=== PATIENT | male | born 1945 | race Caucasian/White ===

== ENCOUNTER 2019-12-13 14:46 | Outpatient (CLI) | payer OTHER, SELFPAY ==
--- NOTE | ~2019-12-13 | CT_ITS ---
EXAMINATION: CT abdomen pelvis w con DATE: 12/13/2019 15:49 INDICATION: Abdomen pain. Fibrosis. TECHNIQUE: Computed tomography (CT) of the abdomen and pelvis was performed with 100 cc Omnipaque 350 intravenous contrast. The dose-length product was 1091.90 mGy-cm. Automated exposure control and ite rative reconstruction technique were employed. Automated exposure control and iterative reconstructio n technique were employed. COMPARISON: CT dated 01/18/2018 FINDINGS: Lung bases are unremarkable. No significant pleural or pericardial effusion. Heart size is normal. There is atherosclerosis of the aorta. Gallbladder is present. There are bilateral renal cyst s. Stable soft tissue surrounding the SMA within the mesentery and retroperitoneum. There is atherosc lerosis of the aorta without evidence for aneurysm. The liver, spleen, pancreas, adrenal glands are unremarkable. There are bilateral renal cysts. Enlarg ed prostate gland. No free air or free fluid. No acute osseous abnormality. There is moderate lumbar spondylosis. IMPRESSION: 1. Stable soft tissue in the mesentery and retroperitoneum, consistent with retroperitoneal fibrosis. No acute abnormalities. Reviewed, dictated and finalized at location A. IMPRESSION: 1. Stable soft tissue in the mesentery and retroperitoneum, consistent with ret roperitoneal fibrosis. No acute abnormalities.
[2019-12-13 15:41] LABS: Estimated Glomerular Filt Rate > 60
== END 2019-12-13 14:47 | disposition home or self-care (01) ==
PROVIDERS: PCP Family Medicine Adolescent Medicine; Visit Provider Family Medicine Adolescent Medicine
DX: R10.84 Generalized abdominal pain (principal)
CPT/HCPCS: 36415; 74177; Q9967

== ENCOUNTER 2024-01-31 08:28 | Inpatient (IN) | payer OTHER, SELFPAY ==
[2024-01-31] VITALS (20 sets, daily range): BP systolic 93–167; BP diastolic 53–88; PULSE 104–133; RESP 12–26; TEMP 37.8–39.2; O2SAT 78–100; BMI 29.6
--- NOTE | ~2024-01-31 | MR_ITS ---
MRI of the brain Clinical History: Unresponsiveness, ataxia Technique: Axial and sagittal T1-weighted images were acquired. These were followed by axial T2-weigh jameson, diffusion weighted, gradient, and FLAIR images. Findings: Probable tiny focus of acute restricted diffusion in the right cerebellum, compatible with tiny acute infarct. There is minimal chronic microvascular ischemic change in the periventricular whi te matter bilaterally. No intracranial hemorrhage or mass lesion seen. Ventricles and subarachnoid spaces are dilated. Orbits are unremarkable. Paranasal sinuses and mastoi ds are clear. Major intracranial flow voids are intact. Sagittal midline structures are intact. IMPRESSION: Tiny acute right cerebellar infarct. Minimal chronic white matter changes and mild generalized atrophy. Reviewed, dictated and finalized at location .
--- NOTE | ~2024-01-31 | CT_ITS ---
EXAMINATION: CT chest abdomen pelvis w con DATE: 01/31/2024 10:08 INDICATION: Septic with altered mental status TECHNIQUE: Computed tomography (CT) of the chest, abdomen, and pelvis was performed with 100 mL Omnip aque-350 intravenous contrast. Automated exposure control and iterative reconstruction technique were employed. The dose-length product was 1502.99 mGy-cm. COMPARISON: None FINDINGS: CHEST CT: Mild potentially moderate emphysema the lungs with assessment somewhat limited by respiratory motion. No pneumonia, pulmonary edema or pleural effusion. Heart size is normal. Atherosclerotic coronary ar amy calcification is. No pericardial effusion. Thoracic aorta is normal in caliber with no dissectio n. No pathologically enlarged thoracic lymphadenopathy. Moderate thoracic spondylosis. ABDOMEN/PELVIS CT: Liver, gallbladder, spleen and bilateral adrenal glands are normal. There is mild to moderate fatty a trophy of the pancreas. There are bilateral renal cysts the largest a 4.9 cm parapelvic cyst at the l eft renal hilum and a 3.7 cm exophytic cyst at the lower pole the right kidney. There are a few scatt ered colonic diverticula without adjacent inflammatory stranding to suggest diverticulitis. Small bow el and appendix are normal. Bladder is normal. Prostatomegaly measuring 4.9 x 3.6 cm. Bilateral small fat-containing inguinal hernias. No free intraperitoneal gas or fluid. No pathologically enlarged ab dominal or pelvic lymphadenopathy. There is calcified atherosclerosis of the aorta and many of the ot her arteries. Likely moderate 50-70% stenosis at the origin of the superior mesenteric artery. 2 cm c ystic lesion at the left hemiscrotum, likely epididymal cyst. Fusiform 6.6 x 3.4 x 2.3 cm intramuscul ar lipoma along the proximal left rectus femoris muscle. Mild S-shaped scoliosis of the lumbar and wi th lower thoracic spine with moderate to severe spondylosis. Small lucent hemangioma at L2. IMPRESSION: 1. No acute cardiopulmonary disease or acute intra-abdominal/pelvic process. 2. Prostatomegaly and 2 cm likely epididymal cyst at the left hemiscrotum. 3. 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 Reviewed, dictated and finalized at location A. IMPRESSION: 1. No acute cardiopulmonary disease or acute intra-abdominal/pelvic process. 2. Prostatomegaly and 2 cm likely epididymal cyst at the left hemiscrotum. 3. Extensive atherosclerosis including coronary artery disease and a moderate s tenosis at the origin of the superior mesenteric artery.
--- NOTE | ~2024-01-31 | CT_ITS ---
Non-contrast Head CT History: Altered mental status Technique: Axial non-contrast imaging of the brain was performed. Dose reduction technique was used on this scan by utilizing automated exposure control and iterative reconstruction technique. The dose -length product (DLP) was 1362.00 mGy-cm. Findings: There is no evidence of acute intracranial hemorrhage, mass lesion, or acute infarct. Poss ible small chronic subdural hygromas versus atrophic change. Brain parenchyma otherwise appears lennox l. The ventricles and subarachnoid spaces are normal in size. The calvarium appears normal. The vi sualized paranasal sinuses and mastoid air cells are clear. Impression: No acute abnormality. Small chronic subdural hygromas versus frontal atrophy. Reviewed, dictated and finalized at location . Impression: No acute abnormality. Small chronic subdural hygromas versus frontal atrophy.
--- NOTE | ~2024-01-31 | XR_ITS ---
EXAMINATION: XR lumbar puncture diagnostic DATE: 01/31/2024 15:00 INDICATION: Fevers and encephalopathy TECHNIQUE: The procedure including the risks and benefits was discussed with the patient's , Jil Bull. Risks discussed included spinal headache, cerebrospinal fluid leak, bleeding, and infection . The patient's understood the risks and agreed to proceed. A timeout was performed to verify the patient's name, date of , and procedure to be performed. The skin overlying the L4-L5 leve l was prepped and draped in usual sterile fashion. Subcutaneous 1% lidocaine was used for local anes thesia. A 22 gauge spinal needle was advanced under fluoroscopic guidance. The needle was removed an d the entry site was cleaned and dressed. There were no immediate complications. A single fluoroscop ic image and one crosstable lateral radiograph of the lumbar spine were obtained. The amount of fluor oscopy time used during this procedure was 0.3 minutes. Total DAP was 6.499 Gycm^2 The patient was t aken to return to the floor in the company of his nurse. FINDINGS: Real-time fluoroscopy demonstrates the needle at the L4-L5 level. Opening pressure was 11 c m water. (Normal range is variably defined as 6-20 cm water and up to 25 cm water in obese patients. Pressure >25 cm water is one of the modified Dandy criteria for idiopathic intracranial hypertension) . 13 mL of clear, colorless fluid was collected in 4 tubes. IMPRESSION: 1. Successful fluoro-guided lumbar puncture with normal opening pressure of 11 cm water. Reviewed, dictated and finalized at location A.
--- NOTE | ~2024-01-31 | XR_ITS ---
XR chest 1V portable DATE: 02/04/2024 08:53 INDICATION: Shortness of breath TECHNIQUE: 02/04/2024 portable AP chest at 0851 hours COMPARISON: 01/31/2024 CT chest abdomen pelvis 01/31/2024 2 view chest FINDINGS: Mild infiltrate or atelectasis of the right midlung. The lungs otherwise appear clear. No pleural effusion or pulmonary vascular congestion or pneumothorax. Heart size appears normal. Ther e is aortic unfolding. Degenerative spurring of the thoracic spine. IMPRESSION: Mild infiltrate or atelectasis, right midlung Reviewed, dictated and finalized at location A.
--- NOTE | ~2024-01-31 | XR_ITS ---
EXAMINATION: XR chest 2V 01/31/2024 09:18 INDICATION: Dizziness. Altered mental status. PROCEDURE: 2 view chest COMPARISON: No prior studies for comparison. FINDINGS: The lungs are clear. The cardiomediastinal silhouette is within normal limits. There are no pleural effusions. There is no pneumothorax suspected. Moderate thoracic spondylosis. IMPRESSION: 1: NO ACUTE CARDIOPULMONARY DISEASE. Reviewed, dictated and finalized at location B.
--- NOTE | 2024-01-31 08:34 | ECG_ITS ---
Test Date: 2024-01-31 08:36:30 Measurements Intervals [place] Rate: 113 P: 42 PA: 202 QRS: -27 QRSD: 92 T: 64 QT: 327 QTc: 449 Interpretive Statements SINUS TACHYCARDIA DELAYED PRECORDIAL R/S TRANSITION BASELINE ARTIFACT- I, II, III, AVR, AVL, AVF, V1-V6 ABNORMAL ECG No previous ECG available for comparison Electronically Signed On 01-31-2024 17:19:41 CDT by Bala Almendarez D.O.
[2024-01-31 09:19] LABS: Basophils Absolute Auto 0.1 K/mm3 (0.0-0.1); Basophils Percent Auto 0.6 % (0.2-1.2); Eosinophils Absolute Auto 0.1 K/mm3 (0-0.3); Eosinophils Percent Auto 1.1 % (0-4.4); Hematocrit 47.5 % (42.0-52.0); Hemoglobin 16.1 g/dL (14.0-18.0); Immature Granulocyte Absolute 0.05 K/mm3 (0.00-0.031); Immature Granulocyte Percent A 0.5 % (0-0.5); Lymphocytes Absolute Auto 1.34 K/mm3 (0.9-3.2); Lymphocytes Percent Auto 12.5 % (18.3-44.2); Mean Corpuscular HGB Conc 33.9 g/dl (32-36); Mean Corpuscular Hemoglobin 29.5 pg (26-34); Mean Corpuscular Volume 87.2 fl (80-100); Mean Platelet Volume 10.1 fl (7.4-10.4); Monocytes Absolute Auto 0.5 K/mm3 (0.1-0.6); Monocytes Percent Auto 5.1 % (2.6-8.5); Neutrophils Absolute Auto 8.6 K/mm3 (1.3-6.7); Neutrophils Percent Auto 80.2 % (45.5-73.1); Platelet Count Result 208 k/mm3 (150-375); Red Blood Count 5.45 M/mm3 (4.6-6.20); Red Cell Distribution Width 13.4 % (11.5-14.5); White Blood Count 10.7 K/mm3 (4.5-10.0)
[2024-01-31 09:21] LABS: Appearance Urine Clear (Clear); Bilirubin Urine Negative (Negative); Blood Urine Negative (Negative); Color Urine Yellow (Yellow); Glucose Urine UA Negative (Negative); Ketones Urine Negative (Negative); Leukocyte Esterase Ur Negative LEU/UL (Negative); Nitrate Urine Negative (Negative); Protein Urine Negative (Negative); Specific Grav Ur 1.016 (1.001-1.035)
[2024-01-31 09:27] LABS: Lactic Acid Reflex 3.7 mmol/L (0.7-2.0)
[2024-01-31 09:29] LABS: Alanine Aminotransferase 18 U/L (6-50); Alkaline Phosphatase 53 U/L (38-126); Anion Gap 14 mmol/L (4-12); Aspartate Amino Transferase 33 U/L (17-59); Bilirubin,Total 0.6 mg/dL (0.2-1.3); Blood Urea Nitrogen 14 mg/dL (9-20); Calcium 9.8 mg/dL (8.4-10.2); Carbon Dioxide 25 mmol/L (22-30); Chloride 98 mmol/L (98-107); Estimated CRCL calculation 70 ml/min; Estimated Glomerular Filt Rate > 60; Glucose 121 mg/dL (65-110); Potassium 4.1 mmol/L (3.4-5.0); Sodium 137 mmol/L (137-145)
[2024-01-31 09:32] LABS: Add Urine Microscopic? NO
[2024-01-31 09:54] LABS: Influenza A QL RT-PCR Negative (Negative); Influenza B QL RT-PCR Negative (Negative); RSV RNA, RT-PCR Negative (Negative); SARS-CoV-2 RNA PCR Negative (Negative)
[2024-01-31] MEDS: SODIUM CHLORIDE 0.9% IV 3,000 ML 999 ML IV CONT (11:19)
[2024-01-31] MEDS: PIPERACILLN/TAZ 3.375GM/NS50ML 3.375 GM/50 ML BAG IVPB (11:19)
--- NOTE | 2024-01-31 11:20 | ED.GENADULT ---
HPI - General Adult General Chief complaint: Dizziness Stated complaint: SOB Time Seen by Provider: 01/31/24 09:22 History of Present Illness HPI narrative: Patient is confused. The history and complaints he provides are non-sensical and inconsistent. It is impossible to get a history from him. History obtained from who is at bedside. This is a 78-year-old male presenting ED for altered mental status. Patient was asymptomatic yesterday. Today he woke up and had nausea vomiting, diarrhea, headache, and body aches. Related Data Home Medications Medication Instructions Recorded Confirmed aspirin 81 mg tablet,delayed 81 mg PO DAILY 08/25/21 04/18/23 release cetirizine 10 mg tablet 10 mg PO DAILY PRN 08/25/21 04/18/23 glucosamine HCl 1,500 mg tablet 1,500 mg PO BID 08/25/21 04/18/23 lycopene 10 mg capsule 10 mg PO DAILY 08/25/21 04/18/23 lysine 500 mg tablet 500 mg PO DAILY 08/25/21 04/18/23 omega 6-wjo-qba-fish oil 1,000 mg 1 cap PO BID 08/25/21 04/18/23 (120 mg-180 mg) capsule (Fish Oil) psyllium husk (aspartame) 3.4 PO 08/25/21 04/18/23 gram/5.8 gram oral powder (Metamucil [facility] Fiber) calcium carbonate (Antacid 200 mg PO BID PRN 03/16/22 04/18/23 (calcium carbonate)) coenzyme Q10 75 mg capsule (Ultra 75 mg PO DAILY 03/16/22 04/18/23 CoQ10) simethicone 125 mg capsule (Gas 125 mg PO BID PRN 03/16/22 04/18/23 Relief (simethicone)) vit B-rljeulon-xsk palmetto 160 1 cap PO BID 03/16/22 04/18/23 mg-[place] africanum 12.5 mg capsule (Urinozinc Prostate Classic) Allergies Allergy/AdvReac Type Severity Reaction Status Date / Time hydrocodone AdvReac Mild Drowsiness Verified 04/18/23 15:16 atorvastatin AdvReac Unknown unknown Verified 04/18/23 15:16 ezetimibe AdvReac Unknown UNknown Verified 04/18/23 15:16 lisinopril AdvReac Unknown UNknown Verified 04/18/23 15:16 rosuvastatin AdvReac Unknown UNknown Verified 04/18/23 15:16 tamsulosin AdvReac Unknown Unknown Verified 04/18/23 15:16 duloxetine AdvReac Intermediate Nausea Uncoded 04/18/23 15:16 [facility] Surgical History Surgical History History of colonoscopy 12/31 Benign polyp Repeat 01/05 Family History Family History Father Arthritis Social History Social History (Updated 04/18/23 @ 15:03 by Fiona Berry) Smoking packs per day: 2 Smoking cigarettes per day: 40.0 Years smoked: 40 Smoking pack-years: 80.00 Smoking status: Former smoker Tobacco type: cigarettes Second hand tobacco smoke exposure: No Smoking end date: 07/17/12 Alcohol intake: never Substance use: never Substance use type: does not use Lack of Transportation: YES Lack of Food: Never True Current Housing: I Have Housing Concerned About Future Housing: No Difficulty Paying Gas/Electric Bills: No Difficulty Paying for Meds: No Currently Unemployed: No Education: High School Diploma/GED Difficulty w/ Childcare or Family Care: No Living arrangements: with family Occupation/Education: retired Gender identity (if verbalized by the patient): Male Sexual Orientation (if Verbalized by the Patient): Straight or Heterosexual Spiritual care concerns: No Agree to blood products: Yes Exam Narrative: APPEARANCE: Patient is confused. Agitated. Head: atraumatic. EYES: EOMI, NOSE: Atraumatic NECK: Trachea midline, no neck stiffness RESPIRATORY: No increased rate of breathing clear to auscultation CARDIOVASCULAR: RRR, no peripheral edema ABDOMINAL: Non-distended soft nontender Genital exam: Penis and testicles are unremarkable. No cellulitis or crepitus. MUSCULOSKELETAl: No obvious deformities NEURO: Alert. Moving 4/4 extremities SKIN:: Warm, diaphoretic PSYCHIATRIC: Normal affect Course Vital Signs Vital signs: Vital Signs Temperature 101 F H 01/31/24 08:54 Pulse Rate 122 H 01/31/24 0
[2024-01-31] MEDS: VANCOMYCIN 1,250 MG/NS 250 ML 1,250 MG/250 ML BAG 166.67 MG IVPB (11:26)
[2024-01-31] MEDS: ACETAMINOPHEN 650 MG SUPPOSITORY RECTAL ×2 (12:00→15:39)
[2024-01-31 12:16] LABS: Reflex Lactic Acid Yes or No Add Lactic
[2024-01-31 12:28] LABS: INR 0.9; Prothrombin Time 12.8 Seconds (11.1-14.7)
[2024-01-31] MEDS: LORazepam INJ (*CRX) 2 MG/ML VIAL 1 MG IV PUSH (12:53)
[2024-01-31] MEDS: VANCOMYCIN 1,000 MG/NS 250 ML 1,000 MG/250 ML BAG 250 MG IVPB (13:04)
[2024-01-31 15:05] LABS: Glucose CSF 56 mg/dL (40-70); Total Protein CSF 113 mg/dL (12-60)
[2024-01-31 15:45] LABS: Lactic Acid 2.6 mmol/L (0.7-2.0)
[2024-01-31 16:03] LABS: Appearance CSF Clear (Clear); CSF source CSF; Color CSF Colorless (Colorless)
[2024-01-31 16:04] LABS: Lymphocytes CSF 30 % (40-80); Monocytes CSF 60 % (15-45); Neutrophils CSF 9 % (0-6); Nucleated Cell CSF 7 /uL (0-5); Red Blood Cell CSF 6 (0-2)
[2024-01-31 16:05] LABS: Macrophages CSF 1
[2024-01-31] MEDS: HYDROmorphone HCL INJ (*CRX) 1 MG/ML SYR 0.5 MG IV PUSH (16:16)
[2024-01-31 16:24] LABS: Thyroid Stimulating Hormone Reflex 0.352 uIU/mL (0.465-4.68)
[2024-01-31 17:27] LABS: Free T4 Free Thyroxine Reflex 0.87 ng/dL (0.78-2.19)
[2024-01-31] MEDS: dexAMETHasone SOD PHOS INJ 10 MG/ML 1 ML VIAL 13.5 MG IV PUSH ×2 (17:29→23:25)
[2024-01-31] MEDS: cefTRIAXone 2 GM/NS 100 ML 2 GM/100 ML BAG IVPB (17:30)
[2024-01-31] MEDS: AMPICILLIN 2 GM/NS 100 ML 2 GM/100 ML BAG IVPB ×2 (17:37→23:26)
[2024-01-31] MEDS: DEXTROSE 5% IVPB (17:59)
[2024-01-31] MEDS: ACYCLOVIR SODIUM IVPB (17:59)
[2024-01-31] MEDS: WATER IVPB (17:59)
[2024-01-31 19:15] LABS: Strep Group A RT-PCR NOT DETECTED (Negative)
[2024-01-31] MEDS: LACTATED RINGERS 1,000 ML 75 ML IV CONT (20:10)
--- NOTE | 2024-01-31 21:11 | PC.NURSE ---
Patient being verbally and physically aggressive at this time upon arrival to the ICU. Naomy STRICKLAND notified and to see the patient.
--- NOTE | 2024-01-31 21:46 | ADMGEN ---
2100 This patient, Thor Bull, was admitted to Intensive Care Unit-4. Patient/family oriented to hospital policies and general routines including ID bracelet, bed and alarms, visiting hours, pain management, procedures, bathroom and other care routines, personal items, smoking policy, room service/diet, and visiting hours. Information on how to activate the Rapid Response Team has been discussed. Patient/Family are encouraged to report perceived risks to care and to ask questions if they do not understand what they are told or what they should do.
--- NOTE | 2024-01-31 22:49 | PM.IMHP ---
H&P: HPI History of Present Illness Date/Time: 01/31/24 18:45 Chief Complaint: Altered mental status. Narrative: This is a 78-year-old male with hypertension, hyperlipidemia, chronic back pain, benign prostatic hyperplasia, and anxiety who presented to the emergency department via EMS from home for evaluation of altered mental status. The patient is confused and answers questions nonsensically and thus all of the following is obtained via a review of his EMR as well as information provided by his . He was in his usual state of health yesterday. When he awoke this morning he was confused and complained of headache, body aches, nausea, vomiting, diarrhea, and chills. At the time my evaluation he is only able to tell me that ?everything hurts. ? He has not had sick contacts or recent travel. He has not had any falls. No known exposure to mosquitos or ticks. In the ED: Temperature was 101.3? F on arrival. He has been tachycardic in the 120s.? Blood pressures have been stable. Labs were significant for WBC count of 10.7 and a lactic acid of 3.7. He tested negative for influenza, RSV, and COVID. Urinalysis was unremarkable. Brain CT showed no acute abnormality and a small chronic subdural hygroma versus frontal atrophy. Chest x-ray showed no acute cardiopulmonary disease. CT of the chest, abdomen, and pelvis showed no acute cardiopulmonary disease or acute intra-abdominal or pelvic process, prostatomegaly and 2 cm likely epididymal cyst, and extensive atherosclerosis. He was started on IV fluids and broad-spectrum antibiotics in the ED pending lumbar puncture and he is being admitted in this setting for close monitoring. Review of Systems Review of Systems: Unable to obtain accurately given clinical condition. [facility] Past Medical History Medical History (Updated 01/31/24 @ 22:57 by Naomy Waite PA-C) Aortic atherosclerosis CT 12/03 Benign prostatic hyperplasia Chronic back pain Depression Essential (primary) hypertension Gastro-esophageal reflux disease without esophagitis Generalized anxiety disorder Hyperlipidemia Menieres disease Surgical History Surgical History History of colonoscopy 12/31 Benign polyp Repeat 01/05 Family History Family History Father Arthritis Social History Social History (Updated 01/31/24 @ 22:54 by Naomy Waite PA-C) Social History: Surrogate medical decision maker: Renee Bull, spouse. Code status: Full code. Smoking packs per day: 2 Smoking cigarettes per day: 40.0 Years smoked: 40 Smoking pack-years: 80.00 Smoking status: Former smoker Tobacco type: cigarettes Second hand tobacco smoke exposure: No Smoking end date: 07/17/12 Alcohol intake: never Substance use: never Substance use type: does not use Lack of Transportation: YES Lack of Food: Never True Current Housing: I Have Housing Concerned About Future Housing: No Difficulty Paying Gas/Electric Bills: No Difficulty Paying for Meds: No Currently Unemployed: No Education: High School Diploma/GED Difficulty w/ Childcare or Family Care: No Living arrangements: with family Occupation/Education: retired Spiritual care concerns: No Agree to blood products: Yes Meds Home Medications and Allergies Home Medications Medication Instructions Recorded Confirmed Type aspirin 81 mg tablet,delayed 81 mg PO DAILY 08/25/21 04/18/23 History release cetirizine 10 mg tablet 10 mg PO DAILY PRN 08/25/21 04/18/23 History glucosamine HCl 1,500 mg tablet 1,500 mg PO BID 08/25/21 04/18/23 History lycopene 10 mg capsule 10 mg PO DAILY 08/25/21 04/18/23 History lysine 500 mg tablet 500 mg PO DAILY 08/25/21 04/18/23 History omega 2-fhz-kvj-fish oil 1,000 mg 1 cap PO BID 08/25/21 04/18/23 History (120 mg-180 mg) capsule (Fish Oil) psyllium husk (aspartame) 3.4 PO
[2024-02-01] VITALS (15 sets, daily range): BP systolic 102–129; BP diastolic 52–81; PULSE 89–120; RESP 15–26; TEMP 36.3–37.6; O2SAT 90–100
[2024-02-01] MEDS: WATER IVPB ×3 (02:33→18:16)
[2024-02-01] MEDS: AMPICILLIN 2 GM/NS 100 ML 2 GM/100 ML BAG IVPB ×6 (02:33→22:10)
[2024-02-01] MEDS: DEXTROSE 5% IVPB ×3 (02:33→18:16)
[2024-02-01] MEDS: ACYCLOVIR SODIUM IVPB ×3 (02:33→18:16)
[2024-02-01 04:00] LABS: Basophils Percent Auto 0.1 % (0.2-1.2); Hematocrit 41.6 % (42.0-52.0); Hemoglobin 14.1 g/dL (14.0-18.0); Immature Granulocyte Absolute 0.06 K/mm3 (0.00-0.031); Immature Granulocyte Percent A 0.4 % (0-0.5); Lymphocytes Absolute Auto 0.89 K/mm3 (0.9-3.2); Lymphocytes Percent Auto 6.4 % (18.3-44.2); Mean Corpuscular HGB Conc 33.9 g/dl (32-36); Mean Corpuscular Hemoglobin 29.5 pg (26-34); Mean Platelet Volume 9.9 fl (7.4-10.4); Monocytes Absolute Auto 0.2 K/mm3 (0.1-0.6); Monocytes Percent Auto 1.1 % (2.6-8.5); Neutrophils Absolute Auto 12.9 K/mm3 (1.3-6.7); Platelet Count Result 192 k/mm3 (150-375); Red Blood Count 4.78 M/mm3 (4.6-6.20); Red Cell Distribution Width 13.5 % (11.5-14.5)
[2024-02-01 04:09] LABS: Ammonia < 9 umol/L (9-30)
[2024-02-01 04:10] LABS: Lactic Acid Reflex 2.5 mmol/L (0.7-2.0)
[2024-02-01 04:12] LABS: Alanine Aminotransferase 17 U/L (6-50); Albumin Level 3.8 g/dL (3.5-5.1); Alkaline Phosphatase 36 U/L (38-126); Anion Gap 11 mmol/L (4-12); Aspartate Amino Transferase 82 U/L (17-59); Bilirubin,Total 0.6 mg/dL (0.2-1.3); Blood Urea Nitrogen 11 mg/dL (9-20); CRP 1.2 mg/dL (<1.0); Calcium 8.6 mg/dL (8.4-10.2); Carbon Dioxide 22 mmol/L (22-30); Chloride 103 mmol/L (98-107); Estimated CRCL calculation 76 ml/min; Estimated Glomerular Filt Rate > 60; Glucose 193 mg/dL (65-110); Magnesium 1.8 mg/dL (1.6-2.3); Phosphorus 2.2 mg/dL (2.5-4.5); Potassium 3.8 mmol/L (3.4-5.0); Sodium 136 mmol/L (137-145)
[2024-02-01] MEDS: SODIUM CHLOR 3% 15 ML NEB (RESPIRATORY THERAPY) 6 ML INHALATION (05:38)
[2024-02-01] MEDS: dexAMETHasone SOD PHOS INJ 10 MG/ML 1 ML VIAL 13.5 MG IV PUSH ×3 (05:55→17:37)
[2024-02-01] MEDS: VANCOMYCIN 1,500 MG/NS 500 ML 1,500 MG/500 ML BAG 250 MG IVPB (06:01)
[2024-02-01] MEDS: cefTRIAXone 2 GM/NS 100 ML 2 GM/100 ML BAG IVPB ×2 (06:01→17:39)
--- NOTE | 2024-02-01 06:34 | PC.NURSE ---
0630: Update given to .
[2024-02-01 06:58] LABS: Reflex Lactic Acid Yes or No Add Lactic
[2024-02-01 07:23] LABS: MRSA (PCR) NOT DETECTED (NOT DETECTE)
[2024-02-01 07:40] LABS: Lactic Acid 2.7 mmol/L (0.7-2.0)
[2024-02-01 07:41] LABS: Prothrombin Time 14.1 Seconds (11.1-14.7)
[2024-02-01 07:42] LABS: Partial Thromboplastin Time 26.4 Seconds (22.3-36.8)
[2024-02-01] MEDS: POTASSIUM/PHOSPHORUS/SODIUM 1.5 GM PACKET 1 PACKET PO (08:23)
--- NOTE | 2024-02-01 09:03 | WPDCNINT ---
Assessment and Plan Assessment and plan (1) Encephalopathy: Qualifiers: Encephalopathy type: unspecified encephalopathy Qualified Code(s): G93.40 - Encephalopathy, unspecified Code(s): G93.40 - Encephalopathy, unspecified Status: Acute Assessment and Plan: Patient presented with altered mental status, fevers, a confusion, headaches, chills -was found to be encephalopathic in the ER and was unable to answer questions and was not making sense in the ER -CT scan of the brainshowed no acute abnormality of the small chronic subdural hygroma versus frontal atrophy. Chest x-ray showed no acute cardiopulmonary disease. -CT of the chest abdomen and pelvis showed no acute cardiopulmonary disease acute intra-abdominal or pelvic process. Prostatomegaly and 2 cm likely epididymal cyst and extensive arthrosclerosis. -LP was done by Interventional Radiology, CSF showed 6 RBCs, 7 nucleated cells, 6% neutrophils, 30% lymphocytes and 6% monocytes, elevated protein and normal glucose. -patient started on vancomycin, ceftriaxone, ampicillin acyclovir for possible aseptic/viral meningitis/encephalitis (01/30) -appreciate Neurology evaluation and recommendations, MRI and EEG have been ordered by neurologist -patient's mental status much improved this morning (2) Sepsis: Qualifiers: Sepsis type: sepsis due to unspecified organism Sepsis acute organ dysfunction status: unspecified Qualified Code(s): A41.9 - Sepsis, unspecified organism Code(s): A41.9 - Sepsis, unspecified organism Status: Acute Assessment and Plan: Patient presented with lactic acidosis, altered mental status, fevers -likely meningitis/encephalitis -continue antibiotics as above -01/30: Blood cultures have been obtained and pending -01/30: CSF cultures have been obtained and pending -lactic acid is improving -continue to monitor (3) Generalized anxiety disorder: Code(s): F41.1 - Generalized anxiety disorder Status: Acute Assessment and Plan: Patient on diazepam at home, continue to hold at this time (4) Other chronic pain: Code(s): G89.29 - Other chronic pain Status: Acute Assessment and Plan: Home Tramadol on hold (5) Hyperlipidemia: Qualifiers: Hyperlipidemia type: unspecified Qualified Code(s): E78.5 - Hyperlipidemia, unspecified Code(s): E78.5 - Hyperlipidemia, unspecified Status: Acute Assessment and Plan: Does not tolerate lipid medications per PCP note Plan DVT prophylaxis: SCDs Stress ulcer prophylaxis: Not indicated Nutrition: Heart healthy diet Code Status: Full code Critical Care Time Spent: 51 minutes Discussed with patient and his spouse at bedside and updated them with patient's condition and plan of care. I answered all questions Due to a high probability of clinically significant, life threatening deterioration, the patient required my highest level of preparedness to intervene emergently and I personally spent this critical care time directly and personally managing the patient. This critical care time included obtaining a history; examining the patient; pulse oximetry; ordering and review of studies; arranging urgent treatment with development of a management plan; evaluation of patient's response to treatment; frequent reassessment; and discussions with other providers. It was exclusive of separately billable procedures and treating other patients and teaching time. Please see Assessment and Plan section and the rest of the note for further information on patient assessment and treatment This dictation may have been done utilizing a voice recognition system. Attempts have been made to correct errors. However, there may be uncorrected grammatical, spelling, and recognitions errors present. Surgical Supply Assistant Consult Note Consult date: 02/01/24 Reason for consult: Encephalopathy, confusion, possible meningitis, fevers, lactic acidos
--- NOTE | 2024-02-01 11:20 | WPDNEURCNPN ---
Assessment and Plan Assessment and plan (1) Toxic metabolic encephalopathy: Code(s): G92.8 - Other toxic encephalopathy Status: Acute Assessment and Plan: Possibility of meningitis or encephalitis is being considered. CSF protein was high at 114 however the only 7 white cells. Cultures are pending. WBC count has gone up to 14,000 this morning however his mental status is improving. Plan I would suggest an MRI of the brain and EEG while we continue with the current therapy degree him until the cultures come back or alternate source of infection is found. further decisions can be made based upon these findings and progress made by the patient. symptomatic treatment for headache may be offered during the interim. Consult date: 02/01/24 HPI: Thor Bull is a 78 year old male Who presented to the hospital on 01/31/2024 with altered mental status. According to his he woke up in the morning and was complaining of abdominal pain and headache and not feeling well. They restart her 911 and came to the hospital. Patient was was noted to be confused. He had a workup done to look for any underlying infection. Chest x-ray and urinalysis did not show any significant abnormality. White cell count was slightly high. Spinal tap was done since the findings were not showing the reason for his change in mental status. That shows CSF protein was high at 114. The only 7 white cells and [address] scan abdomen and pelvis also did not show any significant abnormalities. CT scan head did not show any significant abnormalities. The ER physician to discuss this with me yesterday and I thought that diagnosis was not clear but until we get the results of the cultures which should cover him for meningitis or encephalitis since the incidence of these 6 does seem to be higher than summer months. Prior to waking up yesterday he was in usual state of health the day before. He is still having some headache and does not feel nauseous but he states that he usually does not feel very well because of aches and pains all over. When I asked him he said that he was in [facility] but fairly quickly corrected himself by looking at the water jar which is the name of this hospital. . He denies any difficulty speech or swallowing or any weakness in upper lower limbs. It was noted that he did not have any passing out spell and apart from confusion he was not completely unresponsive at any time. with no prior history of similar presentation according to his was present the time of the evaluation was indeed helpful. Patient also very hard of hearing but with the help of his I was able to converse with him. Review of Systems Review of Systems: All systems reviewed & are unremarkable except as noted in HPI and below PMFSH Past Medical History Medical History (Updated 02/01/24 @ 11:32 by Michi Morfin MD) Aortic atherosclerosis CT 12/03 Benign prostatic hyperplasia Chronic back pain Depression Essential (primary) hypertension Gastro-esophageal reflux disease without esophagitis Generalized anxiety disorder Hyperlipidemia Menieres disease Toxic metabolic encephalopathy Surgical History Surgical History History of colonoscopy 12/31 Benign polyp Repeat 01/05 Family History Family History Father Arthritis Social History Social History Social History: Surrogate medical decision maker: Renee Bull, spouse. Code status: Full code. Smoking packs per day: 2 Smoking cigarettes per day: 40.0 Years smoked: 40 Smoking pack-years: 80.00 Smoking status: Former smoker Tobacco type: cigarettes Second hand tobacco smoke exposure: No Smoking end date: 07/17/12 Alcohol intake: never Substance use: never Substance use type: does not use Lac
[2024-02-01] MEDS: ACETAMINOPHEN 325 MG TABLET 650 MG PO ×2 (11:22→18:45)
[2024-02-01] MEDS: LACTATED RINGERS 1,000 ML 75 ML IV CONT (11:40)
[2024-02-01 12:06] LABS: Vitamin D 25 Hydroxy 40.4 ng/mL
[2024-02-01] MEDS: LORazepam INJ (*CRX) 2 MG/ML VIAL 1 MG IV PUSH (12:24)
[2024-02-01 13:00] LABS: Folic Acid 9.9 ng/mL (2.76->20)
[2024-02-01 14:58] LABS: Lactic Acid Reflex 4.4 mmol/L (0.7-2.0)
--- NOTE | 2024-02-01 15:15 | PHAR ---
Verified home med: * USE FROM HOME * MAGNILIFE ARNICA PAIN RELIEF GEL APPLY TO BACK TWICE DAILY NEEDED FOR PAIN
--- NOTE | 2024-02-01 16:35 | PC.NURSE ---
This patient, Thor Bull, was received from [ICU-4] on 02/01/24 at 1635. Patient/family oriented to unit policies and routines. Report received from RAO Lyn.
[2024-02-01] MEDS: SODIUM CHLORIDE 0.9% IV 500 ML IV CONT (17:45)
[2024-02-01] MEDS: LACTATED RINGERS 1,000 ML 200 ML IV CONT ×2 (18:43→23:43)
[2024-02-01 20:24] LABS: Lactic Acid Reflex 5.5 mmol/L (0.7-2.0)
[2024-02-01 22:59] LABS: Reflex Lactic Acid Yes or No Add Lactic
[2024-02-01 23:38] LABS: Vancomycin Trough 6.5 ug/mL (10.0-20.0)
[2024-02-01] MEDS: SODIUM CHLORIDE 0.9% IV 500 ML 999 ML IV CONT (23:45)
[2024-02-02] VITALS (16 sets, daily range): BP systolic 124–163; BP diastolic 61–83; PULSE 96–128; RESP 18–24; TEMP 36.4–37.2; O2SAT 92–99
[2024-02-02] MEDS: dexAMETHasone SOD PHOS INJ 10 MG/ML 1 ML VIAL 13.5 MG IV PUSH ×5 (00:38→23:20)
[2024-02-02] MEDS: VANCOMYCIN 2,000 MG/NS 500 ML 2,000 MG/500 ML BAG 250 MG IVPB ×3 (00:38→23:22)
[2024-02-02] MEDS: DEXTROSE 5% IVPB ×3 (02:00→18:24)
[2024-02-02] MEDS: WATER IVPB ×3 (02:00→18:24)
[2024-02-02] MEDS: ACYCLOVIR SODIUM IVPB ×3 (02:00→18:24)
[2024-02-02] MEDS: AMPICILLIN 2 GM/NS 100 ML 2 GM/100 ML BAG IVPB ×6 (03:00→22:39)
[2024-02-02 04:14] LABS: Lactic Acid 4.5 mmol/L (0.7-2.0)
[2024-02-02] MEDS: LACTATED RINGERS 1,000 ML 200 ML IV CONT ×4 (04:50→20:48)
[2024-02-02 05:09] LABS: Basophils Percent Auto 0.1 % (0.2-1.2); Hematocrit 43.2 % (42.0-52.0); Hemoglobin 14.2 g/dL (14.0-18.0); Immature Granulocyte Absolute 0.25 K/mm3 (0.00-0.031); Immature Granulocyte Percent A 1.1 % (0-0.5); Immature Platelet Fraction Pct 6.3 % (0.9-11.2); Lymphocytes Absolute Auto 0.97 K/mm3 (0.9-3.2); Lymphocytes Percent Auto 4.3 % (18.3-44.2); Mean Corpuscular HGB Conc 32.9 g/dl (32-36); Mean Corpuscular Hemoglobin 29.8 pg (26-34); Mean Corpuscular Volume 90.6 fl (80-100); Mean Platelet Volume 11.4 fl (7.4-10.4); Monocytes Absolute Auto 0.6 K/mm3 (0.1-0.6); Monocytes Percent Auto 2.7 % (2.6-8.5); Neutrophils Absolute Auto 20.6 K/mm3 (1.3-6.7); Neutrophils Percent Auto 91.8 % (45.5-73.1); Platelet Count Result 177 k/mm3 (150-375); Red Blood Count 4.77 M/mm3 (4.6-6.20); Red Cell Distribution Width 13.9 % (11.5-14.5); White Blood Count 22.5 K/mm3 (4.5-10.0)
[2024-02-02] MEDS: SODIUM CHLOR 3% 15 ML NEB (RESPIRATORY THERAPY) 6 ML INHALATION (05:11)
[2024-02-02 05:28] LABS: Alanine Aminotransferase 19 U/L (6-50); Albumin Level 3.9 g/dL (3.5-5.1); Alkaline Phosphatase 28 U/L (38-126); Anion Gap 12 mmol/L (4-12); Aspartate Amino Transferase 75 U/L (17-59); Bilirubin,Total 0.5 mg/dL (0.2-1.3); Blood Urea Nitrogen 12 mg/dL (9-20); CRP 0.8 mg/dL (<1.0); Calcium 8.5 mg/dL (8.4-10.2); Carbon Dioxide 21 mmol/L (22-30); Chloride 106 mmol/L (98-107); Estimated CRCL calculation 101 ml/min; Estimated Glomerular Filt Rate > 60; Glucose 166 mg/dL (65-110); Magnesium 1.9 mg/dL (1.6-2.3); Potassium 3.6 mmol/L (3.4-5.0); Sodium 139 mmol/L (137-145)
[2024-02-02 05:30] LABS: Lactic Acid Reflex 4.6 mmol/L (0.7-2.0)
[2024-02-02 05:50] LABS: Procalcitonin 0.1 ng/mL
--- NOTE | 2024-02-02 05:52 | PCRCNOTE ---
RT administered sputum induction. No sputum obtained. Patient has a dry cough. RT instructed patient to spit specimen into cup if he were to produce one and call nurse to collect. RN aware.
[2024-02-02] MEDS: cefTRIAXone 2 GM/NS 100 ML 2 GM/100 ML BAG IVPB ×2 (07:27→17:57)
[2024-02-02] MEDS: LACTATED RINGERS 1,000 ML 999 ML IV CONT (14:03)
[2024-02-02 14:54] LABS: Lyme Disease Ab (IgM), Blot NEGATIVE (NEGATIVE); Lyme Disease Ab(IgG), Blot NEGATIVE (NEGATIVE)
--- NOTE | 2024-02-02 15:34 | PM.IMPN ---
Progress Note: A&P Assessment and Plan (1) Toxic metabolic encephalopathy: Code(s): G92.8 - Other toxic encephalopathy Status: Acute (2) Depression: Code(s): F32.A - Depression, unspecified Status: Acute (3) Sepsis: Qualifiers: Sepsis acute organ dysfunction status: unspecified Sepsis type: sepsis due to unspecified organism Qualified Code(s): A41.9 - Sepsis, unspecified organism Code(s): A41.9 - Sepsis, unspecified organism Status: Acute (4) Generalized anxiety disorder: Code(s): F41.1 - Generalized anxiety disorder Status: Acute (5) Other chronic pain: Code(s): G89.29 - Other chronic pain Status: Acute (6) Hyperlipidemia: Qualifiers: Hyperlipidemia type: unspecified Qualified Code(s): E78.5 - Hyperlipidemia, unspecified Code(s): E78.5 - Hyperlipidemia, unspecified Status: Acute (7) Essential (primary) hypertension: Code(s): I10 - Essential (primary) hypertension Status: Acute (8) Gastro-esophageal reflux disease without esophagitis: Code(s): K21.9 - Gastro-esophageal reflux disease without esophagitis Status: Acute (9) Lactic acidosis: Code(s): E87.20 - Acidosis, unspecified Status: Acute Plan Severe sepsis without shock Leukocytosis Lactic acidosis Toxic metabolic encephalopathy Cerebellar stroke Depression and anxiety Essential hypertension Sinus tachycardia Hyperlipidemia BPH Persistently elevated lactic acid and leukocytosis however the patient is not having any other indicators of sepsis and is hemodynamically stable. He is afebrile. Mental status is improving gradually. Continue triple antibiotics for meningitis and acyclovir prophylaxis. Pending LP Gram stain and culture. Continue fluid resuscitation LR 200 cc/hour recheck lactic acid along with acetaminophen U tox and salicylates. The patient is not eating well currently. Continue Decadron for 1 more day. The patient takes approximately 5 mg of diazepam b.i.d. on a regular basis. She appears anxious and may be having withdrawal symptoms. Considering his presentation with encephalopathy will start him at a lower dose at diazepam 1 mg p.o. b.i.d.. Also restart his metoprolol 50 mg p.o. b.i.d. since he is having mild sinus tachycardia. Be contributing to his lactic acidosis as well. Discussion held with his Renee at bedside. Chronic Conditions - - - F/E/N: LR 200 cc/hour, speech therapy consultation GI prophylaxis: Not indicated DVT prophylaxis: Lovenox Lines: Peripheral IV Code Status: Patient wishes to be full code. Dispo: Speech therapy, PT OT. Stable on telemetry floor. Can transfer to medical floor once his lactic acidosis is resolving. Medication reconciliation obtained via the following: Social Drivers of Health -Living arrangements, functional status, significant history: Patient uses a cane at baseline. He is independent he lives at home with the . -Patient was screened for food insecurity, housing instability, transportation needs, utility difficulties, and interpersonal safety. No needs identified Agents of Abuse -Illicit drug abuse: Denies -ETOH abuse: Rarely -Tobacco/nicotine: Denies -Energy drinks: Tea and coffee -Additional supplements: Denies Note to the patient: The 21st Century Cures Act makes medical notes like these available to patients in the interest of transparency. Please be advised this is a medical document. It is intended for eern-zh-khnj communication. It is written in medical language and may contain unfamiliar abbreviations or verbiage. Components may appear blunt or direct. Medical documents are intended to carry relevant information, facts as evident, and the clinical opinion of the practitioner at the time of the encounter. This note was generated by a speech
--- NOTE | 2024-02-02 15:52 | WPDNEUROPN ---
Progress Note: A&P Assessment and Plan (1) Lactic acidosis: Code(s): E87.20 - Acidosis, unspecified Status: Acute (2) Toxic metabolic encephalopathy: Code(s): G92.8 - Other toxic encephalopathy Status: Acute Plan I discussed the findings with Dr. Smith the hospitalist on the case and suggest that to after waiting another 24 hours we can lower him to Rocephin and acyclovir were if the cultures remain negative. I shall follow him up with results of EEG. Thank you very much. Subjective Date/time seen: 02/02/24 15:52 Interval history: The patient has a shown some improvement denies any new symptoms. No headache or nausea vomiting or visual symptoms. He has remained afebrile today. His is present and thinks that although he is still slightly confused but there is a slight progress since yesterday. I also spoke to the aviation electrical technician about the findings spinal tap and the fact that we are still debating Regarding the possibility of encephalitis. In the meanwhile the cultures have been negative the patient is on antibiotics and antiviral agents. I also spoke to the hospitalist Dr. Smith and we discussed the management. Review of Systems Review of Systems: All systems reviewed & are unremarkable except as noted in HPI and below Exam Narrative: Fully conscious alert hard of hearing no aphasia or dysarthria head and neck no nuchal rigidity cranial senior testing intact motor system normal power and tone in both upper and lower limbs. Deep tendon reflexes did not show any asymmetry. No cogwheeling or involuntary movements are seen. On and evaluation mental status he still seems to be slightly confused but overall better than before. Objective Data Vital Signs Vital Signs: Vital Signs - 24 hr 02/01/24 16:00 02/01/24 16:00 02/01/24 16:00 Temperature Pulse Rate 114 H 117 H Respiratory Rate 25 H Blood Pressure 129/81 Pulse Oximetry 95 93 Oxygen Delivery Room Air Fraction of Inspired Oxygen 02/01/24 18:00 02/01/24 20:00 02/01/24 20:00 Temperature 36.6 C Pulse Rate 120 H 112 H 112 H Respiratory Rate 18 Blood Pressure 119/54 L Pulse Oximetry 95 Oxygen Delivery Fraction of Inspired Oxygen 02/01/24 20:00 02/01/24 22:00 02/02/24 00:00 Temperature Pulse Rate 112 H 102 H 128 H Respiratory Rate 18 Blood Pressure Pulse Oximetry 95 Oxygen Delivery Room Air Fraction of Inspired Oxygen 28 02/02/24 00:00 02/02/24 00:00 02/02/24 02:00 Temperature 36.6 C Pulse Rate 128 H 118 H 124 H Respiratory Rate 18 19 Blood Pressure 154/83 H Pulse Oximetry 95 99 Oxygen Delivery Room Air Fraction of Inspired Oxygen 02/02/24 04:00 02/02/24 04:00 02/02/24 04:00 Temperature 36.4 C Pulse Rate 106 H 106 H 118 H Respiratory Rate 19 18 Blood Pressure 143/71 H Pulse Oximetry 99 98 Oxygen Delivery Room Air Fraction of Inspired Oxygen 02/02/24 05:15 02/02/24 06:00 02/02/24 08:00 Temperature Pulse Rate 128 H 102 H 114 H Respiratory Rate 24 H Blood Pressure Pulse Oximetry Oxygen Delivery Fraction of Inspired Oxygen 02/02/24 08:00 02/02/24 08:00 02/02/24 09:17 Temperature 36.6 C Pulse Rate 109 H Respiratory Rate 20 Blood Pressure 137/77 Pulse Oximetry 98 98 95 Oxygen Delivery Room Air Room Air Fraction of Inspired Oxygen 02/02/24 10:00 02/02/24 12:00 02/02/24 12:00 Temperature 37.2 C Pulse Rate 112 H 108 H Respiratory Rate 24 H Blood Pressure 163/78 H Pulse Oximetry 98 Oxygen Delivery Room Air Fraction of Inspired Oxygen 02/02/24 12:00 02/02/24 14:00 Temperature Pulse Rate 128 H 106 H Respiratory Rate Blood Pressure Pulse Oximetry Oxygen Delivery Fraction of Inspired Oxygen Intake/Output Intake/Output: Intake & Output 01/30/24 01/31/24 02/01/24 02/02/24 23:59 23:59 23:59 23:59 Intake Total 4118.2 6760.4 6736.4 Output Total 1000
--- NOTE | 2024-02-02 16:06 | WPDNEUROLOGY ---
Neurology EEG Report General Information Date of Study: 02/02/24 TEST Electroencephalogram DIAGNOSIS Metabolic encephalopathy CONDITION OF RECORDING Bedside recording EEG NUMBER [id number] CLINICAL HISTORY Patient presented to the emergency when changes mental status now showing improvement. A clear diagnosis has not been established yet. Patient was suspected of possible encephalitis. EEG DESCRIPTION During wakefulness the background activity consists of posterior dominant alpha rhythm at 8-9 hertz with an amplitude of 20-40 microvolts which appears more deformed and reactive to eye opening. Anteriorly low amplitude mixed frequency activity was seen. There is a mild anteroposterior gradient. Hyperventilation or 47 for not performed. During drowsiness attenuation of background activity was seen however patient did not progress to stage 2 sleep. IMPRESSION This is a normal EEG obtained during awake and drowsy states.
[2024-02-02] MEDS: METOPROLOL TARTRATE 50 MG TAB PO (17:56)
[2024-02-02] MEDS: ENOXAPARIN 40 MG/0.4 ML SYRINGE SUB-Q (17:57)
[2024-02-02] MEDS: diazePAM (*CRX) 2 MG TABLET 1 MG PO (17:57)
--- NOTE | 2024-02-02 18:21 | PM.IMPN ---
Subjective Date/time seen: 02/02/24 18:21 Interval history: No acute overnight events. Objective Data Vital Signs Vital Signs: Vital Signs - 24 hr 02/01/24 20:00 02/01/24 20:00 02/01/24 20:00 Temperature 97.8 F Pulse Rate 112 H 112 H 112 H Respiratory Rate 18 18 Blood Pressure 119/54 L Pulse Oximetry 95 95 Oxygen Delivery Room Air Fraction of Inspired Oxygen 28 02/01/24 22:00 02/02/24 00:00 02/02/24 00:00 Temperature Pulse Rate 102 H 128 H 128 H Respiratory Rate 18 Blood Pressure Pulse Oximetry 95 Oxygen Delivery Room Air Fraction of Inspired Oxygen 02/02/24 00:00 02/02/24 02:00 02/02/24 04:00 Temperature 97.9 F Pulse Rate 118 H 124 H 106 H Respiratory Rate 19 Blood Pressure 154/83 H Pulse Oximetry 99 Oxygen Delivery Fraction of Inspired Oxygen 02/02/24 04:00 02/02/24 04:00 02/02/24 05:15 Temperature 97.6 F Pulse Rate 106 H 118 H 128 H Respiratory Rate 19 18 24 H Blood Pressure 143/71 H Pulse Oximetry 99 98 Oxygen Delivery Room Air Fraction of Inspired Oxygen 02/02/24 06:00 02/02/24 08:00 02/02/24 08:00 Temperature 97.8 F Pulse Rate 102 H 114 H 109 H Respiratory Rate 20 Blood Pressure 137/77 Pulse Oximetry 98 Oxygen Delivery Fraction of Inspired Oxygen 02/02/24 08:00 02/02/24 09:17 02/02/24 10:00 Temperature Pulse Rate 112 H Respiratory Rate Blood Pressure Pulse Oximetry 98 95 Oxygen Delivery Room Air Room Air Fraction of Inspired Oxygen 02/02/24 12:00 02/02/24 12:00 02/02/24 12:00 Temperature 99.0 F Pulse Rate 108 H 128 H Respiratory Rate 24 H Blood Pressure 163/78 H Pulse Oximetry 98 Oxygen Delivery Room Air Fraction of Inspired Oxygen 02/02/24 14:00 02/02/24 16:00 02/02/24 17:56 Temperature 97.9 F Pulse Rate 106 H 106 H 104 H Respiratory Rate 24 H Blood Pressure 124/61 Pulse Oximetry 92 Oxygen Delivery Fraction of Inspired Oxygen Intake/Output Intake/Output: Intake & Output 01/30/24 01/31/24 02/01/24 02/02/24 23:59 23:59 23:59 23:59 Intake Total 4118.2 6760.4 7096.4 Output Total 1000 4840 1127 Balance 3118.2 3910.4 5969.4 Meds/Results Medications: Active Medications Generic Name Dose Route Start Last Admin Trade Name Freq PRN Reason Stop Dose Admin Acetaminophen 650 mg 01/31/24 23:03 02/01/24 18:45 Acetaminophen 325 Mg Tablet PO 650 mg Q6H PRN Administration Mild Pain (1-3) or Fever Aspirin 81 mg 02/03/24 09:00 Aspirin 81 Mg Enteric Tablet PO DAILY NELSON Dexamethasone Sodium Phosphate 13.5 mg 02/01/24 00:00 02/02/24 17:58 Dexamethasone Sod Phos Inj 10 Mg/Ml 1 Ml Vial 0.15 mg/kg (13.5 mg) 13.5 mg IV PUSH Administration Q6H NELSON Diazepam 1 mg 02/02/24 17:00 02/02/24 17:57 Diazepam (*Crx) 2 Mg Tablet PO 1 mg BID NELSON Administration Enoxaparin Sodium 40 mg 02/02/24 15:40 02/02/24 17:57 Enoxaparin 40 Mg/0.4 Ml Syringe SUB-Q 40 mg DAILY NELSON Administration Acyclovir Sodium 910 mg/ 268.2 mls @ 250 mls/hr 02/01/24 02:00 02/02/24 11:56 Dextrose IVPB Infused Q8H NELSON Infusion Ceftriaxone Sodium 2 gm in 100 mls @ 200 mls/hr 02/01/24 05:00 02/02/24 17:57 Rocephin 2 Gm/Ns 100 Ml IVPB 200 mls/hr Q12H NELSON Administration Ampicillin Sodium 2 gm in 100 mls @ 200 mls/hr 01/31/24 22:00 02/02/24 14:21 Ampicillin 2 Gm/Ns 100 Ml IVPB Infused Q4H NELSON Infusion Lactated Ringer's 1,000 mls @ 200 mls/hr 01/31/24 18:10 02/02/24 15:06 Lr - Lactated Ringers Iv IV CONT 200 mls/hr .Q5H NELSON Infusion Vancomycin HCl 2,000 mg in 500 mls @ 250 mls/hr 02/02/24 00:00 02/02/24 13:42 Vancomycin 2,000 Mg/Ns 500 Ml IVPB Infused Q12H NELSON Infusion Metoprolol Tartrate 50 mg 02/02/24 15:35 02/02/24 17:56 Metoprolol Tartrate 50 Mg Tab PO 50 mg Q12HR NELSON Administration * Home Med * 1 each 02/01/24 15:13 Magnilife Arnica TOPICAL 03/02/
[2024-02-02 18:32] LABS: Reflex Lactic Acid Yes or No Add Lactic
[2024-02-02 21:15] LABS: Glucose Point of Care 156 mg/dl (65-105)
[2024-02-02 22:31] LABS: Acetaminophen < 10 ug/mL (10-30); Ethanol < 10 mg/dL (<10); Salicylate < 1.0 mg/dL (2-20)
[2024-02-02 22:35] LABS: Lactic Acid Reflex 4.2 mmol/L (0.7-2.0)
[2024-02-03] VITALS (17 sets, daily range): BP systolic 138–154; BP diastolic 70–88; PULSE 68–122; RESP 16–24; TEMP 36.4–37.1; O2SAT 84–100
[2024-02-03 01:20] LABS: Amphetamine Screen Urine Negative (Negative); Barbiturate Screen Urine Negative (Negative); Benzodiazepines Screen Urine Positive (Negative); Cannabinoid Screen Urine Negative (Negative); Cocaine Screen Urine Negative (Negative); Methadone Screen Urine Negative (Negative); Opiate Screen Urine Negative (Negative); Phencyclidine Screen Urine Negative (Negative)
[2024-02-03] MEDS: ACYCLOVIR SODIUM IVPB ×3 (01:46→17:52)
[2024-02-03] MEDS: DEXTROSE 5% IVPB ×3 (01:46→17:52)
[2024-02-03] MEDS: WATER IVPB ×3 (01:46→17:52)
[2024-02-03] MEDS: AMPICILLIN 2 GM/NS 100 ML 2 GM/100 ML BAG IVPB ×3 (01:47→09:12)
[2024-02-03] MEDS: LACTATED RINGERS 1,000 ML 200 ML IV CONT ×4 (04:07→21:02)
[2024-02-03] MEDS: cefTRIAXone 2 GM/NS 100 ML 2 GM/100 ML BAG IVPB ×2 (04:08→17:48)
[2024-02-03 05:17] LABS: Basophils Percent Auto 0.2 % (0.2-1.2); Hematocrit 41.9 % (42.0-52.0); Hemoglobin 13.8 g/dL (14.0-18.0); Immature Granulocyte Absolute 0.33 K/mm3 (0.00-0.031); Immature Granulocyte Percent A 1.7 % (0-0.5); Lymphocytes Absolute Auto 1.14 K/mm3 (0.9-3.2); Lymphocytes Percent Auto 5.9 % (18.3-44.2); Mean Corpuscular HGB Conc 32.9 g/dl (32-36); Mean Platelet Volume 10.5 fl (7.4-10.4); Monocytes Absolute Auto 0.6 K/mm3 (0.1-0.6); Monocytes Percent Auto 3.3 % (2.6-8.5); Neutrophils Percent Auto 88.9 % (45.5-73.1); Platelet Count Result 233 k/mm3 (150-375); Red Blood Count 4.76 M/mm3 (4.6-6.20); White Blood Count 19.2 K/mm3 (4.5-10.0)
[2024-02-03 05:31] LABS: Lactic Acid Reflex 4.8 mmol/L (0.7-2.0)
[2024-02-03 05:39] LABS: Alanine Aminotransferase 30 U/L (6-50); Albumin Level 3.9 g/dL (3.5-5.1); Alkaline Phosphatase 38 U/L (38-126); Anion Gap 12 mmol/L (4-12); Aspartate Amino Transferase 66 U/L (17-59); Bilirubin,Total 0.5 mg/dL (0.2-1.3); Blood Urea Nitrogen 13 mg/dL (9-20); CRP 0.6 mg/dL (<1.0); Calcium 8.7 mg/dL (8.4-10.2); Carbon Dioxide 28 mmol/L (22-30); Chloride 100 mmol/L (98-107); Estimated CRCL calculation 102 ml/min; Estimated Glomerular Filt Rate > 60; Glucose 141 mg/dL (65-110); Magnesium 1.9 mg/dL (1.6-2.3); Potassium 3.2 mmol/L (3.4-5.0); Sodium 140 mmol/L (137-145)
--- NOTE | 2024-02-03 06:05 | PCRCNOTE ---
Patient refused sputum sample. Stated that he feels clear and has nothing to cough up.
[2024-02-03] MEDS: dexAMETHasone SOD PHOS INJ 10 MG/ML 1 ML VIAL 13.5 MG IV PUSH (06:20)
[2024-02-03 07:34] LABS: Glucose Point of Care 140 mg/dl (65-105)
[2024-02-03 08:12] LABS: Reflex Lactic Acid Yes or No Add Lactic
[2024-02-03] MEDS: ASPIRIN 81 MG ENTERIC TABLET PO (09:12)
[2024-02-03] MEDS: METOPROLOL TARTRATE 50 MG TAB PO ×2 (09:13→20:25)
[2024-02-03] MEDS: diazePAM (*CRX) 2 MG TABLET 1 MG PO ×2 (09:13→17:48)
[2024-02-03] MEDS: ENOXAPARIN 40 MG/0.4 ML SYRINGE SUB-Q (09:13)
--- NOTE | 2024-02-03 10:32 | PCSTNOTE ---
Please refer to the Bedside Swallow Evaluation in the EMR. Please note, silent aspiration cannot be ruled out at bedside.
--- NOTE | 2024-02-03 11:39 | PCPTNOTE ---
PT eval not completed at this time: pt was sleeping and family member and RN request pt not be awakened; stated he did not sleep well last night.
[2024-02-03] MEDS: POTASSIUM CHLORIDE 20 MEQ ER TABLET PO (12:52)
--- NOTE | 2024-02-03 13:10 | PM.IMPN ---
Progress Note: A&P Assessment and Plan (1) Toxic metabolic encephalopathy: Code(s): G92.8 - Other toxic encephalopathy Status: Acute (2) Depression: Code(s): F32.A - Depression, unspecified Status: Acute (3) Sepsis: Qualifiers: Sepsis acute organ dysfunction status: unspecified Sepsis type: sepsis due to unspecified organism Qualified Code(s): A41.9 - Sepsis, unspecified organism Code(s): A41.9 - Sepsis, unspecified organism Status: Acute (4) Generalized anxiety disorder: Code(s): F41.1 - Generalized anxiety disorder Status: Acute (5) Other chronic pain: Code(s): G89.29 - Other chronic pain Status: Acute (6) Hyperlipidemia: Qualifiers: Hyperlipidemia type: unspecified Qualified Code(s): E78.5 - Hyperlipidemia, unspecified Code(s): E78.5 - Hyperlipidemia, unspecified Status: Acute (7) Essential (primary) hypertension: Code(s): I10 - Essential (primary) hypertension Status: Acute (8) Gastro-esophageal reflux disease without esophagitis: Code(s): K21.9 - Gastro-esophageal reflux disease without esophagitis Status: Acute (9) Lactic acidosis: Code(s): E87.20 - Acidosis, unspecified Status: Acute Plan This is a 78-year-old male with a H obesity, aortic atherosclerosis, BPH, chronic back pain, depression anxiety, essential hypertension, hyperlipidemia, Meniere's disease, GERD. The patient lives at home with his he usually uses a cane to ambulate and is typically independent and no history of dementia. He was in his usual state of health until the morning of admission. He woke up with headaches, body aches, nausea, vomiting, chills and altered mental status. Subsequently was brought in to [place] [facility] and found to had fever of 101.3? F along with tachycardia. White blood cell count 84201, lactic acid of 3.7. Quad viral screen was negative. Blood cultures obtain. And CT showed no acute abnormalities. Chest x-ray without acute cardiopulmonary disease. CT of chest abdomen pelvis show no acute disease either. There was prostatomegaly and a likely 2 cm epididymal cyst and extensive atherosclerosis. LP was performed as well which demonstrated 6 RBCs, 7 nucleated cells, 6% neutrophils, 30% lymphocytes, 6% monocytes, elevated protein and normal glucose. Patient was thought to have aseptic/viral meningitis versus encephalitis. Neurology also consulted from the ER. He was started on acyclovir hepatis illness ceftriaxone and vancomycin. Patient was admitted to the ICU on 01/31/2024. On 01/31 he was transferred to the telemetry unit as he was stable and improving. Severe sepsis without shock Leukocytosis Lactic acidosis Toxic metabolic encephalopathy Cerebellar stroke Depression and anxiety Essential hypertension Sinus tachycardia Hyperlipidemia BPH Patient now on normal sinus rhythm restarting his [employer] metoprolol 50 mg p.o. b.i.d.. Leukocytosis improving. Procalcitonin not elevated. Continue ceftriaxone and acyclovir. Appreciate Neurology recommendations. Continue fluid resuscitation at 100 cc/hour and recheck lactic acid at 3:00 p.m. His encephalopathy continues to improve as well. Chronic Conditions - - - F/E/N: LR 200 cc/hour, speech and swallow evaluation completed, continue heart healthy diet. GI prophylaxis: Not indicated DVT prophylaxis: Lovenox 40 mg subQ q.day Lines: Peripheral IV Code Status: Patient wishes to be full code. Dispo: Speech therapy, PT OT. Stable on telemetry floor. Can transfer to medical floor once his lactic acidosis is resolving. Medication reconciliation obtained via the following: Nurse completed on admission Social Drivers of Health -Living arrangements, functional status, significant history: Patient uses a cane at baseline. He is independent he lives at home with the . -Patient was scre
[2024-02-03 16:39] LABS: Lactic Acid Reflex 3.2 mmol/L (0.7-2.0)
[2024-02-04] VITALS (17 sets, daily range): BP systolic 137–166; BP diastolic 71–88; PULSE 72–105; RESP 18–34; TEMP 36.4–37; O2SAT 85–98
[2024-02-04] MEDS: DEXTROSE 5% IVPB ×3 (01:15→17:30)
[2024-02-04] MEDS: WATER IVPB ×3 (01:15→17:30)
[2024-02-04] MEDS: ACYCLOVIR SODIUM IVPB ×3 (01:15→17:30)
[2024-02-04] MEDS: ACETAMINOPHEN 325 MG TABLET 650 MG PO (01:22)
[2024-02-04] MEDS: LACTATED RINGERS 1,000 ML 200 ML IV CONT (03:12)
[2024-02-04] MEDS: cefTRIAXone 2 GM/NS 100 ML 2 GM/100 ML BAG IVPB ×2 (04:29→16:53)
[2024-02-04 05:09] LABS: Basophils Percent Auto 0.1 % (0.2-1.2); Hematocrit 38.6 % (42.0-52.0); Immature Granulocyte Absolute 0.18 K/mm3 (0.00-0.031); Immature Granulocyte Percent A 1.2 % (0-0.5); Lymphocytes Absolute Auto 1.57 K/mm3 (0.9-3.2); Lymphocytes Percent Auto 10.1 % (18.3-44.2); Mean Corpuscular HGB Conc 33.7 g/dl (32-36); Mean Corpuscular Hemoglobin 29.8 pg (26-34); Mean Corpuscular Volume 88.5 fl (80-100); Mean Platelet Volume 10.5 fl (7.4-10.4); Monocytes Absolute Auto 1.2 K/mm3 (0.1-0.6); Monocytes Percent Auto 7.8 % (2.6-8.5); Neutrophils Absolute Auto 12.6 K/mm3 (1.3-6.7); Neutrophils Percent Auto 80.8 % (45.5-73.1); Platelet Count Result 200 k/mm3 (150-375); Red Blood Count 4.36 M/mm3 (4.6-6.20); White Blood Count 15.6 K/mm3 (4.5-10.0)
[2024-02-04 05:36] LABS: Alanine Aminotransferase 27 U/L (6-50); Albumin Level 3.2 g/dL (3.5-5.1); Alkaline Phosphatase 35 U/L (38-126); Anion Gap 5 mmol/L (4-12); Aspartate Amino Transferase 48 U/L (17-59); Bilirubin,Total 0.5 mg/dL (0.2-1.3); Blood Urea Nitrogen 16 mg/dL (9-20); Calcium 8.7 mg/dL (8.4-10.2); Carbon Dioxide 34 mmol/L (22-30); Chloride 98 mmol/L (98-107); Estimated CRCL calculation 89 ml/min; Estimated Glomerular Filt Rate > 60; Glucose 105 mg/dL (65-110); Magnesium 2.1 mg/dL (1.6-2.3); Potassium 3.4 mmol/L (3.4-5.0); Sodium 137 mmol/L (137-145)
[2024-02-04] MEDS: diazePAM (*CRX) 2 MG TABLET 1 MG PO ×2 (08:11→16:53)
[2024-02-04] MEDS: ASPIRIN 81 MG ENTERIC TABLET PO (08:11)
[2024-02-04] MEDS: METOPROLOL TARTRATE 50 MG TAB PO ×2 (08:11→23:05)
[2024-02-04] MEDS: FUROSEMIDE INJ 40 MG/4 ML VIAL IV PUSH ×2 (08:11→12:35)
[2024-02-04] MEDS: ENOXAPARIN 40 MG/0.4 ML SYRINGE SUB-Q (08:12)
--- NOTE | 2024-02-04 12:03 | PM.IMPN ---
Progress Note: A&P Assessment and Plan (1) Toxic metabolic encephalopathy: Code(s): G92.8 - Other toxic encephalopathy Status: Acute (2) Depression: Code(s): F32.A - Depression, unspecified Status: Acute (3) Sepsis: Qualifiers: Sepsis acute organ dysfunction status: unspecified Sepsis type: sepsis due to unspecified organism Qualified Code(s): A41.9 - Sepsis, unspecified organism Code(s): A41.9 - Sepsis, unspecified organism Status: Acute (4) Generalized anxiety disorder: Code(s): F41.1 - Generalized anxiety disorder Status: Acute (5) Other chronic pain: Code(s): G89.29 - Other chronic pain Status: Acute (6) Hyperlipidemia: Qualifiers: Hyperlipidemia type: unspecified Qualified Code(s): E78.5 - Hyperlipidemia, unspecified Code(s): E78.5 - Hyperlipidemia, unspecified Status: Acute (7) Essential (primary) hypertension: Code(s): I10 - Essential (primary) hypertension Status: Acute (8) Gastro-esophageal reflux disease without esophagitis: Code(s): K21.9 - Gastro-esophageal reflux disease without esophagitis Status: Acute (9) Lactic acidosis: Code(s): E87.20 - Acidosis, unspecified Status: Acute (10) Acute hypoxemic respiratory failure: Code(s): J96.01 - Acute respiratory failure with hypoxia Status: Acute Plan This is a 78-year-old male with a H obesity, aortic atherosclerosis, BPH, chronic back pain, depression anxiety, essential hypertension, hyperlipidemia, Meniere's disease, GERD. The patient lives at home with his he usually uses a cane to ambulate and is typically independent and no history of dementia. He was in his usual state of health until the morning of admission. He woke up with headaches, body aches, nausea, vomiting, chills and altered mental status. Subsequently was brought in to [place] ER and found to had fever of 101.3? F along with tachycardia. White blood cell count 10826, lactic acid of 3.7. Quad viral screen was negative. Blood cultures obtain. And CT showed no acute abnormalities. Chest x-ray without acute cardiopulmonary disease. CT of chest abdomen pelvis show no acute disease either. There was prostatomegaly and a likely 2 cm epididymal cyst and extensive atherosclerosis. LP was performed as well which demonstrated 6 RBCs, 7 nucleated cells, 6% neutrophils, 30% lymphocytes, 6% monocytes, elevated protein and normal glucose. Patient was thought to have aseptic/viral meningitis versus encephalitis. Neurology also consulted from the ER. He was started on acyclovir hepatis illness ceftriaxone and vancomycin. Patient was admitted to the ICU on 01/31/2024. On 01/31 he was transferred to the telemetry unit as he was stable and improving. 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 b.i.d.. Leukocytosis continues to improve. Decadron discontinued, but still in and vancomycin discontinued. Currently on ceftriaxone and acyclovir. Follow-up CSF studies. Procalcitonin not elevated. Afebrile. Appreciate Neurology recommendations. Encephalopathy nearly resolved. On 02/03 developed acute hypoxic respiratory failure. Has some lower extremity swelling and scant bibasilar crackles. Chest x-ray not impressive although this is likely flash pulmonary edema. Patient is down to 2 L from 4 L. he has had good urine output since Lasix 40 mg IV x1. Fluids have been discontinued. Give another Lasix 40 mg IV x1 and monitor urine output. Continue to wean O2 goal greater than 94% O2 saturation SpO2. F/E/N: Saline lock IV, speech and swallow evaluation completed, continue heart healthy diet. GI prophylaxis: Not in
--- NOTE | 2024-02-04 14:06 | PC.NURSE ---
This patient, Thor Bull, was received from [facility] on 02/04/24 at 1406. Patient/family oriented to unit policies and routines
--- NOTE | 2024-02-04 14:18 | PC.NURSE ---
This patient, Thor Bull, was transferred to [325-1 ] on 02/04/24 at 1408. Personal belongings sent with patient. Report given to [Gutierrez YEH ]. Appropriate documentation sent with patient.
[2024-02-05] MEDS: DEXTROSE 5% IVPB ×2 (03:00→10:05)
[2024-02-05] MEDS: WATER IVPB ×2 (03:00→10:05)
[2024-02-05] MEDS: ACYCLOVIR SODIUM IVPB ×2 (03:00→10:05)
[2024-02-05] MEDS: cefTRIAXone 2 GM/NS 100 ML 2 GM/100 ML BAG IVPB (05:25)
[2024-02-05 06:00] VITALS: BP 141/82; PULSE 80; RESP 20; TEMP 36.4; O2SAT 93
[2024-02-05 06:40] LABS: Basophils Percent Auto 0.3 % (0.2-1.2); Eosinophils Percent Auto 0.4 % (0-4.4); Hemoglobin 13.7 g/dL (14.0-18.0); Immature Granulocyte Absolute 0.14 K/mm3 (0.00-0.031); Immature Granulocyte Percent A 1.3 % (0-0.5); Lymphocytes Absolute Auto 1.71 K/mm3 (0.9-3.2); Lymphocytes Percent Auto 16.3 % (18.3-44.2); Mean Corpuscular HGB Conc 32.6 g/dl (32-36); Mean Platelet Volume 10.1 fl (7.4-10.4); Monocytes Absolute Auto 0.7 K/mm3 (0.1-0.6); Monocytes Percent Auto 6.9 % (2.6-8.5); Neutrophils Absolute Auto 7.8 K/mm3 (1.3-6.7); Neutrophils Percent Auto 74.8 % (45.5-73.1); Nucleated Red Blood Cells Perc 0.3 % (0.0-0.2); Platelet Count Result 185 k/mm3 (150-375); Red Blood Count 4.72 M/mm3 (4.6-6.20); Red Cell Distribution Width 13.6 % (11.5-14.5); White Blood Count 10.5 K/mm3 (4.5-10.0)
[2024-02-05 07:09] LABS: Anion Gap 6 mmol/L (4-12); Blood Urea Nitrogen 17 mg/dL (9-20); Calcium 7.9 mg/dL (8.4-10.2); Carbon Dioxide 33 mmol/L (22-30); Chloride 96 mmol/L (98-107); Estimated CRCL calculation 89 ml/min; Estimated Glomerular Filt Rate > 60; Glucose 101 mg/dL (65-110); Magnesium 2.3 mg/dL (1.6-2.3); Potassium 3.1 mmol/L (3.4-5.0); Sodium 135 mmol/L (137-145)
[2024-02-05 07:24] LABS: Procalcitonin 0.1 ng/mL
[2024-02-05 08:29] LABS: Source CEREBROSPINAL FLUID
[2024-02-05 08:41] VITALS: O2SAT 96
[2024-02-05] MEDS: ENOXAPARIN 40 MG/0.4 ML SYRINGE SUB-Q (08:41)
[2024-02-05] MEDS: diazePAM (*CRX) 2 MG TABLET 1 MG PO (08:41)
[2024-02-05] MEDS: ASPIRIN 81 MG ENTERIC TABLET PO (08:41)
[2024-02-05 08:43] VITALS: PULSE 87
[2024-02-05] MEDS: METOPROLOL TARTRATE 50 MG TAB PO (08:43)
[2024-02-05 14:00] VITALS: BP 127/66; PULSE 91; RESP 24; TEMP 35.9; O2SAT 90
--- NOTE | 2024-02-05 16:19 | PM.DS ---
DS: Admitting Diagnosis Discharge Date 02/05/2024 Admitting Diagnosis Altered mental status DS: Discharge Diagnosis Discharge Diagnosis (1) Toxic metabolic encephalopathy: Code(s): G92.8 - Other toxic encephalopathy Status: Acute DS: Summary Hospital Course Hospital Course: This is a 78-year-old male with a PMH obesity, aortic atherosclerosis, BPH, chronic back pain, depression anxiety, essential hypertension, hyperlipidemia, Meniere's disease, GERD. The patient lives at home with his he usually uses a cane to ambulate and is typically independent and no history of dementia. He was in his usual state of health until the morning of admission. He woke up with headaches, body aches, nausea, vomiting, chills and altered mental status. Subsequently was brought in to [place] ER and found to had fever of 101.3? F along with tachycardia. White blood cell count 28869, lactic acid of 3.7. Quad viral screen was negative. Blood cultures obtain. And CT showed no acute abnormalities. Chest x-ray without acute cardiopulmonary disease. CT of chest abdomen pelvis show no acute disease either. There was prostatomegaly and a likely 2 cm epididymal cyst and extensive atherosclerosis. LP was performed as well which demonstrated 6 RBCs, 7 nucleated cells, 6% neutrophils, 30% lymphocytes, 6% monocytes, elevated protein and normal glucose. Patient was thought to have aseptic/viral meningitis versus encephalitis. Neurology also consulted from the ER. He was started on acyclovir hepatis illness ceftriaxone and vancomycin. Patient was admitted to the ICU on 01/31/2024. On 01/31 he was transferred to the telemetry unit as he was stable and improving. 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 b.i.d.. Leukocytosis continues to improve. Decadron discontinued, but still in and vancomycin discontinued. Currently on ceftriaxone and acyclovir. Follow-up CSF studies. Procalcitonin not elevated. Afebrile. Appreciate Neurology recommendations. Encephalopathy nearly resolved. On 02/03 developed acute hypoxic respiratory failure. Has some lower extremity swelling and scant bibasilar crackles. Chest x-ray not impressive although this is likely flash pulmonary edema. Patient is down to 2 L from 4 L. he has had good urine output since Lasix 40 mg IV x1. Fluids have been discontinued. Give another Lasix 40 mg IV x1 and monitor urine output. Continue to wean O2 goal greater than 94% O2 saturation SpO2. And 02/04 the patient is stable for discharge to home. Verbalizing he does not want to stay anymore and feels at his baseline and ready to go home. Spoke with Dr. Morfin of Neurology and he agreed this would be okay, unclear etiology of his altered mental status although viral meningitis is the most likely. Patient prescribed acyclovir on discharge. Patient advised to follow-up with primary care within a week. Located on the warning signs of worsening/return of infection or altered mental status. Patient remained in sinus rhythm with good SpO2 saturation on room air. Adverse effects, risk and benefits of medication discussed. Patient agreeable to plan. Medication reconciliation obtained via the following: Nurse completed on admission Social Drivers of Health -Living arrangements, functional status, significant history: Patient uses a cane at baseline. He is independent he lives at home with the . -Patient was screened for food insecurity, housing instability, transportation needs, utility difficulties, and interpersonal safety. No needs identified Agents of Abuse -Illicit drug abuse: Denies -ETOH abuse: Rarely -Tobacco/nicotine: Denies -Energy drink
[2024-02-06 06:24] LABS: Epstein Barr Virus DNA PCR NOT DETECTED
[2024-02-06 07:33] LABS: Herpes Simplex Type 1 DNA PCR NOT DETECTED; Herpes Simplex Type 2 DNA PCR NOT DETECTED
[2024-02-08 16:13] LABS: Source CEREBROSPINAL FLUID
[2024-02-08 19:54] LABS: Cryptococcus Antigen NOT DETECTED; Cryptococcus Specimen Source CEREBROSPINAL FLUID
[2024-02-09 00:53] LABS: VDRL Quantitative CSF NON-REACTIVE
[2024-02-16 07:57] LABS: Lyme AB IgG, Immunoblot NO BANDS DETECTED; Lyme AB IgM, Immunoblot NO BANDS DETECTED; Source Epstein Barr Virus CEREBROSPINAL FLUID
[2024-02-19 14:34] LABS: Cryptococcus Additional Testin Not Indicated
== END 2024-02-05 17:05 | disposition home or self-care (01) | DRG 871 ==
LOC: ANHED 18:09 → ANHICU 02-01 11:26 → ANH3MEDSUR 02-05 16:19 → ANHICU 02-06 08:56 → ANH3MEDSUR 02-06 08:56 → ANHICU 02-06 08:56 → ANHIMU 02-06 08:56
PROVIDERS: Internal Medicine; Physician Assistant; Psychiatry & Neurology Neurology; Admitting Provider General Practice; Emergency Provider Emergency Medicine; PCP Family Medicine Adolescent Medicine; Visit Provider General Practice
DX: A41.89 Other specified sepsis (principal); J81.0 Acute pulmonary edema; A87.9 Viral meningitis, unspecified; G93.40 Encephalopathy, unspecified; R65.20 Severe sepsis without septic shock; I10 Essential (primary) hypertension; I70.0 Atherosclerosis of aorta; E78.5 Hyperlipidemia, unspecified; K21.9 Gastro-esophageal reflux disease without esophagitis; N40.0 Benign prostatic hyperplasia without lower urinary tract symptoms; M54.9 Dorsalgia, unspecified; G89.29 Other chronic pain; H81.09 Meniere's disease, unspecified ear; F32.A Depression, unspecified; F41.9 Anxiety disorder, unspecified; Z20.822 Contact with and (suspected) exposure to COVID-19; Z86.010 Personal history of colon polyps; Z79.82 Long term (current) use of aspirin; Z87.891 Personal history of nicotine dependence
CPT/HCPCS: 36415; 62328; 70450; 70551; 71045; 71046; 71260; 74177; 80048; 80053; 80202; 80307; 81003; 82140; 82306; 82607; 82746; 82945; 82948; 83605; 83735; 84100; 84145; 84157; 84439; 84443; 84480; 85025; 85055; 85610; 85730; 86140; 86403; 86592; 86617; 87015; 87040; 87070; 87102; 87116; 87205; 87206; 87255; 87529; 87637; 87641; 87651; 87798; 89051; 92610; 93005; 94640; 95816; 96361; 96365; 96366; 96367; 96375; 97110; 97116; 97161; 97165; 97530; 97535; 99285; A9270; J0133; J0290; J0696; J1100; J1170; J1650; J1940; J2060; J2250; J2543; J3370; J7030; J7060; J7120; Q9967